=== PATIENT | male | born 1955 | race Caucasian/White ===

== ENCOUNTER → 2020-08-29 14:40 | Outpatient (CLI) | payer BC, SELFPAY ==
[2020-08-29 16:54] LABS: Prostate Specific Ag, Diagnost 0.615 ng/ml (0.0-4.0)
== END ==
PROVIDERS: Visit Provider Urology
DX: C61 Malignant neoplasm of prostate (principal)
CPT/HCPCS: 36415; 84153

== ENCOUNTER → 2021-08-31 11:49 | Outpatient (CLI) | payer MEDICARE, BC, SELFPAY ==
[2021-08-31 13:10] LABS: Prostate Specific Ag, Diagnost 0.266 ng/ml (0.0-4.0)
== END ==
PROVIDERS: Visit Provider Urology
DX: C61 Malignant neoplasm of prostate (principal)
CPT/HCPCS: 36415; 84153